=== PATIENT | male | born 1980 | race Caucasian/White ===

== ENCOUNTER 2022-09-02 13:08 | Inpatient (IN) | payer OTHER ==
[~2022-09-02] VITALS: Ht 177.8 cm; Wt 97.5 kg
--- NOTE | 2022-09-02 13:24 | NUR ---
To ER bed 1, "chest pain started around 11 going to arm. Pinching like", aaox3, breathing even and non labored, connected to monitor, awaiting md lawson
--- NOTE | 2022-09-02 14:08 | NUR ---
SALINE LOCK ESTABLISHED, BLOOD DRAWN AND SENT TO LAB
[2022-09-02] MEDS ORDERED: ASPIRIN 325 MG TABLET PO ONE (14:30)
[2022-09-02 14:31] LABS: BASOPHILS % (AUTO) 0.2 % (0.0-2.0); EOSINOPHILS % (AUTO) 1.3 % (0.0-6.0); HEMATOCRIT 47 % (39-51); LYMPHOCYTES # (AUTO) 1.3 K/uL (0.8-4.8); LYMPHOCYTES % (AUTO) 19.7 % (20.0-44.0); MEAN CORPUSCULAR HGB CONC 34 g/dl (31.0-36.0); MEAN CORPUSCULAR VOLUME 91 fL (80-96); MONOCYTES # (AUTO) 0.4 K/uL (0.1-1.30); MONOCYTES % (AUTO) 5.7 % (2.0-12.0); NEUTROPHILS # (AUTO) 4.9 K/uL (1.8-8.9); NEUTROPHILS % (AUTO) 73.1 % (43.0-81.0); PLATELET COUNT (AUTO) 273 K/uL (150-450); RED BLOOD CELL COUNT(AUTO) 5.15 MIL/uL (4.5-6.0); WHITE BLOOD COUNT (AUTO) 6.6 K/uL (4.3-11.0)
[2022-09-02] MEDS ORDERED: ASPIRIN 325 MG TABLET ONE (14:42)
--- NOTE | 2022-09-02 14:47 | NUR ---
COVID SWAB DONE AND SENT TO LAB
[2022-09-02 15:11] LABS: CALCIUM, SERUM 9.3 mg/dL (8.5-10.1); CARBON DIOXIDE 27 mmol/L (21-32); CHLORIDE 103 mmol/L (98-107); GLUCOSE 178 mg/dL (74-106); POTASSIUM 3.7 mmol/L (3.5-5.1); SODIUM SERUM 138 mmol/L (136-145); UREA NITROGEN, BLOOD 16 mg/dL (7-18)
[2022-09-02 15:24] LABS: ALANINE AMINOTRANSFERASE 99 U/L (12-78); ALBUMIN 4.1 g/dL (3.4-5.0); ALKALINE PHOSPHATASE 64 U/L (46-116); ASPARTATE AMINOTRANSFERASE 53 U/L (15-37); BILIRUBIN,DIRECT 0.2 mg/dL (0.0-0.2); BILIRUBIN,TOTAL 1.1 mg/dL (0.2-1.0); TOTAL PROTEIN, SERUM 7.7 g/dL (6.4-8.2)
--- NOTE | 2022-09-02 15:34 | NUR ---
DR YOUSIF AT BEDSIDE TALKING TO THE PATIENT
--- NOTE | 2022-09-02 15:36 | NUR ---
MOVE SHEET SUBMITTED.
[2022-09-02] MEDS ORDERED: Z GUARD REMEDY 4 OZ OINT TP PRN (16:00)
[2022-09-02] MEDS ORDERED: MAG HYDROX/AL HYDROX/SIMETH 30 ML UDC PO PRN (16:00)
[2022-09-02] MEDS ORDERED: ONDANSETRON HCL/PF 4 MG/2 ML VIAL IVP PRN (16:00)
[2022-09-02] MEDS ORDERED: NITROGLYCERIN 0.4 MG/TAB BOTTLE SL PRN (16:00)
[2022-09-02] MEDS ORDERED: MAGNESIUM HYDROXIDE 30 ML UDC PO PRN (16:00)
[2022-09-02] MEDS ORDERED: ACETAMINOPHEN 325 MG TABLET ONE (16:02)
[2022-09-02] MEDS: ACETAMINOPHEN 325 MG TABLET PO PRN (16:02)
--- NOTE | 2022-09-02 16:28 | NUR ---
REPORT GIVEN TO BROWN RINCON FOR CHINEDU
--- NOTE | 2022-09-02 16:39 | NUR ---
TRANSFERRED TO BED 315 IN STABLE CONDITION
[2022-09-02] MEDS: NIFEdipine XL (30MG) 30 MG TAB PO SCH (16:56)
[2022-09-02] MEDS: LORAZEPAM 1 MG TABLET PO PRN (16:56)
[2022-09-02] MEDS: CLONIDINE HCL 0.1 MG TABLET PO PRN (18:48)
[2022-09-02 19:30] VITALS: BP 172/127
--- NOTE | 2022-09-02 19:37 | NUR ---
RN ADMITTING/CLOSING NOTES RECEIVED PATIENT VIA [facility] ACCOMPANIED BY 2 ER STAFF. PATIENT IS ON ROOM AIR, NO S/S OF RESPIRATORY DISTRESS. A/Ox4, ABLE TO MAKE NEEDS KNOWN. PUT ON TELE MONITORING SHOWING SINUS RHYTHM AT THIS TIME NO C/O OF CHEST PAIN AT THIS TIME. PATIENT ORIENTED TO STAFF AND UNIT, FULL BODY ASSESSMENT COMPLETED: CARDIAC WNL, RESPIRATORY WNL, GI/ CONTINENT ABLE TO GO TO THE BATHROOM. SKIN IS INTACT. PATIENT HAD HIGH BP WHEN ARRIVING TO UNIT. PRN ATIVAN ADMINISTERED. BEFORE CHANGE OF SHIFT, BP STILL HIGH AND PRN CLONIDINE ADMINISTERED. WILL ENDORSE TO MONITOR. SAFETY MEASURES MAINTAINED: BED LOCKED AND IN LOWEST POSITION, SIDE RAILS UPx2, CALL LIGHT WITHIN REACH, HOB ELEVATED. WILL ENDORSE TO NEXT SHIFT ANY CHINEDU.
--- NOTE | 2022-09-02 19:46 | NUR ---
RECEIVED PATIENT IN BED, ALERT/ORIENTED X4, ROOM AIR, NO DISTRESS, NO COMPLAIN OF CHEST PAIN AT THIS TIME, BP ELEVATED, WAS GIVEN CLONIDINE BY AM RN. WILL MONITOR BP.
[2022-09-02 19:55] VITALS: BP 156/122
[2022-09-02 20:00] VITALS: BP 156/12
--- NOTE | 2022-09-02 20:14 | NUR ---
NOTIFIED AMADOU MENDEZ REGARDING ELEVATED BP, WILL ORDER HYDRALAZINE.
[2022-09-02] MEDS ORDERED: hydrALAZINE HCL IV 20 MG VIAL IV PRN (20:30)
[2022-09-02] MEDS: MORPHINE SULFATE INJ 2 MG/ML DISP.SYRIN IV PRN (20:47)
[2022-09-02 21:59] VITALS: BP 160/95
[2022-09-03] VITALS (7 sets, daily range): BP systolic 111–136; BP diastolic 75–93
--- NOTE | 2022-09-03 06:04 | NUR ---
ADMITTED FOR CHEST PAIN, ALERT/ORIENTED X4, STABLE ON ROOM AIR, LUNG SOUNDS ARE CLEAR, CHEST PAIN, GIVEN MORPHINE, WITH RELIEF, TROPONIN HS 7.0, CHEST XRAY NEGATIVE, SINUS RHYTHM, ELEVATED BP, DIASTOLIC > 100. RECEIVED CLONIDINE 0.1 MG X1, NO IMPROVEMENT OF BP, NOTIFIED CELLULOSE INSULATION HELPER DEDRICK, GIVEN HYDRALAZINE 10 MG IV, BP IMPROVED. AT 0400 BP 126/83 HR 62. ECHO PENDING RESULTS.
--- NOTE | 2022-09-03 07:05 | NUR ---
CUTTER GRINDER OPENING NOTES RECEIVED PATIENT AWAKE IN BED, A/Ox4 ABLE TO MAKE NEEDS KNOWN. ON ROOM AIR, NO S/S OF RESPIRATORY DISTRESS OR SOB. PATIENT DOES COMPLAIN OF SLIGHT CHEST PAIN, WILL CONTINUE TO MONITOR AND ADMINISTERED MEDICATION NEEDED. ON TELE MONITORING SHOWING SINUS RHYTHM HR [address] DEPRESSIONS. IV ACCESS LAC #22 G SL. INTACT AND PATENT AT THIS TIME. AMBULATORY, CONTINENT, HAS BATHROOM PRIVILEGES. SKIN IS INTACT. SAFETY MEASURES IN PLACE: BED LOCKED AND IN LOWEST POSITION, SIDE RAILS UP x2, HOB ELEVATED, CALL LIGHT WITHIN REACH. WILL CONTINUE TO MONITOR. Addendum: 09/03/22 at 0844 by BROWN ESPINAL RN ADDENDUM: IV SITE L FA #22 G SL
[2022-09-03 07:13] LABS: BASOPHILS % (AUTO) 0.3 % (0.0-2.0); EOSINOPHILS % (AUTO) 2.3 % (0.0-6.0); HEMATOCRIT 45 % (39-51); HEMOGLOBIN 15.3 g/dL (13.5-17.5); LYMPHOCYTES % (AUTO) 35.5 % (20.0-44.0); MEAN CORPUSCULAR HGB CONC 34 g/dl (31.0-36.0); MEAN CORPUSCULAR VOLUME 92 fL (80-96); MONOCYTES # (AUTO) 0.5 K/uL (0.1-1.30); NEUTROPHILS % (AUTO) 52.9 % (43.0-81.0); PLATELET COUNT (AUTO) 241 K/uL (150-450); WHITE BLOOD COUNT (AUTO) 5.8 K/uL (4.3-11.0)
[2022-09-03 07:25] LABS: CALCIUM, SERUM 9.4 mg/dL (8.5-10.1); MAGNESIUM 2.4 mg/dL (1.8-2.4); PHOSPHORUS 3.6 mg/dL (2.5-4.9)
[2022-09-03] MEDS: NIFEdipine XL (30MG) 30 MG TAB PO SCH (08:11)
[2022-09-03] MEDS: MORPHINE SULFATE INJ 2 MG/ML DISP.SYRIN IV PRN ×4 (08:12→21:25)
[2022-09-03] MEDS ORDERED: LOSARTAN POTASSIUM 50 MG TABLET PO SCH (10:00)
[2022-09-03] MEDS: ASPIRIN 81 MG TAB.CHEW PO SCH (10:23)
[2022-09-03] MEDS ORDERED: METOPROLOL TARTRATE 50 MG TABLET PO STA (11:05)
--- NOTE | 2022-09-03 11:40 | NUR ---
RN NOTES PULLED 25 MG INSTEAD OF 50 MG TAB OF LOPRESSOR, PHARMACY NOTIFIED, NEW ORDER OBTAINED. FIRST ORDER NON-ADMIN.
[2022-09-03] MEDS ORDERED: METOPROLOL TARTRATE 50 MG TABLET PO ONE (12:00)
[2022-09-03 12:34] LABS: CHOLESTEROL 228 mg/dL (<200); HDL CHOLESTEROL 66 mg/dL (40-60); LDL 129 mg/dL (0-99); TRIGLYCERIDES 186 mg/dL (30-150)
[2022-09-03] MEDS ORDERED: IV NS 0.9% 250 ML IV ONE (13:04)
[2022-09-03] MEDS ORDERED: IOHEXOL-350 100 ML VIAL IV ONE (13:04)
[2022-09-03] MEDS ORDERED: NITROGLYCERIN 4.9 GM SPRAY ONE (13:17)
[2022-09-03] MEDS: ACETAMINOPHEN 325 MG TABLET PO PRN (15:31)
[2022-09-03] MEDS: NITROGLYCERIN PATCH 0.2 MG/HR PATCH.TD24 TD SCH (17:06)
[2022-09-03] MEDS: ENOXAPARIN SODIUM 100 MG/ML DISP.SYRIN SQ SCH (17:07)
--- NOTE | 2022-09-03 18:40 | NUR ---
MANAGER KNOWLEDGE CLOSING NOTES PATIENT AWAKE IN BED, A/Ox4 ABLE TO MAKE NEEDS KNOWN. STABLE ON ROOM AIR, NO S/S OF RESPIRATORY DISTRESS OR SOB. ON TELE MONITORING SHOWING SINUS RHYTHM HR [address] DEPRESSIONS. IV ACCESS L FA #22 G SL. INTACT AND PATENT AT THIS TIME. AMBULATORY, CONTINENT, HAS BATHROOM PRIVILEGES. SKIN IS INTACT. ALL PRESCRIBED MEDICATION ADMINISTERED. SAFETY MEASURES MAINTAINED: BED LOCKED AND IN LOWEST POSITION, SIDE RAILS UP x2, HOB ELEVATED, CALL LIGHT WITHIN REACH. WILL ENDORSE TO NEXT SHIFT ANY CHINEDU.
--- NOTE | 2022-09-03 19:58 | NUR ---
RECEIVED PATIENT IN BED, ALERT/ORIENTED X4, ROOM AIR, COMPLAINING OF CHEST PAIN, RECEIVED MORPHINE DURING AM SHIFT, NITRO PATCH IN PLACE, WILL GIVE MORPHINE WHEN DUE, KEPT SAFE, WILL CONTINUE TO MONITOR.
[2022-09-03] MEDS: LORAZEPAM 1 MG TABLET PO PRN (20:23)
[2022-09-04] VITALS: BP 123/85
[2022-09-04] MEDS: MORPHINE SULFATE INJ 2 MG/ML DISP.SYRIN IV PRN ×6 (01:26→21:57)
[2022-09-04 04:00] VITALS: BP 123/83
[2022-09-04] MEDS: ENOXAPARIN SODIUM 100 MG/ML DISP.SYRIN SQ SCH ×2 (05:19→16:47)
--- NOTE | 2022-09-04 06:52 | NUR ---
ALERT/ORIENTED X4, ROOM AIR, INTERMITTENT CHEST PAIN, VS STABLE, MORPHINE Q6 HRS, ADEQUATE RELIEF, CTCA DONE, WILL HAVE CARDIAC CATHETERIZATION 09/05/22, PATIENT IS AWARE. MONITOR TROPONIN HS Q6HRS, LAB DRAW FOR 09/03/22 AT 2230 MISSED.
--- NOTE | 2022-09-04 07:30 | NUR ---
DURALUMIN METALWORKER OPENING NOTES RECEIVED PATIENT ON BED AWAKE AND A/O X4. ON ROOM AIR TOLERATING WELL. NO SOB NOTED. NOT IN DISTRESS. WITH COMPLAINTS OF CHEST PAIN AT THE SCALE OF 5/10. COMFORT MEASURES PROVIDED. ON TELE MONITOR CURRENTLY READING SINUS RHYTHM AT 72BPM. WITH IV ACCESS AT THE LEFT FOREARM G22 SALINE LOCKED, PATENT AND INTACT. SAFETY MEASURES IN PLACED. CALL LIGHT WITHIN REACH. BED ON LOWEST LOCKED POSITION, SIDE RAILS UP X2. WILL CONTINUE TO MONITOR.
--- NOTE | 2022-09-04 07:30 | NUR ---
MS RINCON OPENING NOTES RECEIVED PATIENT ON BED AWAKE AND A/O X4. ON ROOM AIR TOLERATING WELL. NO SOB NOTED. NOT IN DISTRESS. WITH COMPLAINTS OF CHEST PAIN AT THE SCALE OF 02/11 Addendum: 09/04/22 at 1308 by LUISA HESS RN ERROR.
[2022-09-04] MEDS: NIFEdipine XL (30MG) 30 MG TAB PO SCH (08:42)
[2022-09-04] MEDS: ATORVASTATIN 40 MG TABLET PO SCH ×2 (08:42→21:57)
[2022-09-04] MEDS: ASPIRIN 81 MG TAB.CHEW PO SCH (08:42)
[2022-09-04] MEDS: METOPROLOL SUCCINATE 25 MG TAB.SR.24H PO SCH (08:42)
[2022-09-04 10:19] VITALS: BP 140/92
[2022-09-04 10:56] LABS: CALCIUM, SERUM 9.3 mg/dL (8.5-10.1)
[2022-09-04 10:59] LABS: BASOPHILS # (AUTO) 0.1 K/uL (0.0-0.2); BASOPHILS % (AUTO) 0.9 % (0.0-2.0); EOSINOPHILS % (AUTO) 2.4 % (0.0-6.0); HEMATOCRIT 44 % (39-51); LYMPHOCYTES # (AUTO) 2.7 K/uL (0.8-4.8); MEAN CORPUSCULAR HGB CONC 34 g/dl (31.0-36.0); MEAN CORPUSCULAR VOLUME 92 fL (80-96); MONOCYTES # (AUTO) 0.5 K/uL (0.1-1.30); MONOCYTES % (AUTO) 7.9 % (2.0-12.0); NEUTROPHILS # (AUTO) 2.7 K/uL (1.8-8.9); NEUTROPHILS % (AUTO) 44.8 % (43.0-81.0); PLATELET COUNT (AUTO) 250 K/uL (150-450); RED BLOOD CELL COUNT(AUTO) 4.81 MIL/uL (4.5-6.0)
[2022-09-04] MEDS: NITROGLYCERIN PATCH 0.2 MG/HR PATCH.TD24 TD SCH (16:47)
--- NOTE | 2022-09-04 18:48 | NUR ---
TRAVELING CONSTRUCTION SUPERINTENDENT CLOSING NOTES PATIENT ON BED AWAKE AND A/O X4. ON ROOM AIR TOLERATING WELL. NO SOB NOTED. NOT IN DISTRESS. WITH COMPLAINTS OF CHEST PAIN AT THE SCALE OF 4/10. COMFORT MEASURES PROVIDED. ON TELE MONITOR CURRENTLY READING SINUS RHYTHM AT 75BPM. WITH IV ACCESS AT THE LEFT FOREARM G22 SALINE LOCKED, PATENT AND INTACT. DUE MEDS GIVEN. SAFETY MEASURES IN PLACED. CALL LIGHT WITHIN REACH. BED ON LOWEST LOCKED POSITION, SIDE RAILS UP X2. WILL ENDORSE TO NEXT SHIFT FOR CHINEDU.
--- NOTE | 2022-09-04 20:10 | NUR ---
LEARNING STRATEGIST OPENING NOTE RECEIVED PATIENT AWAKE, ALERT/ORIENTED X 4, PT ABLE TO MAKE NEEDS KNOWN. PT STABLE ON RA, NO S/S OF DISTRESS OR SOB NOTED, BREATHING EVEN AND UNLABORED. PATIENT C/O OF HEADACHE, TYLENOL 650 MG GIVEN ORDERED. PATIENT ON EXTERNAL INDUSTRIAL MACHINE OPERATOR READING SINUS RHYTHM, HR: 70. NEW IV INSERTED ON RIGHT FOREARM #22G INTACT AND FLUSHING WELL, BLOOD RETURN NOTED. PATIENT GOING TO BETTING AGENCY COUNTER CLERK TOMORROW, TO BE NPO AFTER MIDNIGHT, PT VERBALIZED UNDERSTANDING. SAFETY MEASURES IN PLACE: CALL LIGHT WITHIN REACH, SIDE RAILS UP X 2, BED LOCKED IN LOWEST POSITION, PT AMBULATORY WITH STEADY GAIT. WILL CONTINUE TO MONITOR PATIENT
[2022-09-04] MEDS: ACETAMINOPHEN 325 MG TABLET PO PRN (20:30)
[2022-09-04 20:34] VITALS: BP 135/79
--- NOTE | 2022-09-04 21:54 | NUR ---
ANIMAL PHYSIOLOGY TEACHER NOTE PATIENT C/O 8/10 PAIN, WHEN ASKED WHERE PATIENT SAID "EVERYWHERE". PATIENT REQUESTING PAIN MEDICINE, WILL ADMINISTER MORPHINE 2 MG IV Q4H ORDERED
[2022-09-04] MEDS: LORAZEPAM 1 MG TABLET PO PRN (23:08)
--- NOTE | 2022-09-04 23:08 | NUR ---
FRUIT BUYER NOTE PATIENT RESTLESS, ANXIOUS, UNABLE TO SLEEP. ATIVAN 0.5 MG PO GIVEN ORDERED. WILL CONTINUE TO MONITOR PATIENT
[2022-09-05] VITALS (11 sets, daily range): BP systolic 118–155; BP diastolic 72–107
[2022-09-05] MEDS: MORPHINE SULFATE INJ 2 MG/ML DISP.SYRIN IV PRN ×5 (02:04→22:26)
--- NOTE | 2022-09-05 06:52 | NUR ---
TERRITORY ACCOUNT REPRESENTATIVE CLOSING NOTE PATIENT AWAKE, ALERT/ORIENTED X 4, PT ABLE TO MAKE NEEDS KNOWN. PT STABLE ON RA, NO S/S OF DISTRESS OR SOB NOTED, BREATHING EVEN AND UNLABORED. PATIENT ON EXTERNAL PYROTECHNICIAN READING SINUS RHYTHM, HR: 62. IV ACCESS ON RIGHT FOREARM #22G INTACT AND FLUSHING WELL. PATIENT KEPT NPO AFTER MIDNIGHT. MEDICATIONS GIVEN ORDERED, PT NEEDS MET THROUGHOUT SHIFT. SAFETY MEASURES IN PLACE: CALL LIGHT WITHIN REACH, SIDE RAILS UP X 2, BED LOCKED IN LOWEST POSITION, PT AMBULATORY WITH STEADY GAIT. WILL ENDORSE TO DAYSHIFT NURSE FOR CONTINUITY OF CARE
--- NOTE | 2022-09-05 07:30 | NUR ---
URBAN DESIGNER OPENING NOTES RECEIVED PATIENT ON BED AWAKE AND A/O X4. ON ROOM AIR TOLERATING WELL. NO SOB NOTED. NOT IN DISTRESS. WITH COMPLAINTS OF CHEST PAIN AT THE SCALE OF 8/10. MORPHINE 2MG IV GIVEN PRN FOR PAIN. COMFORT MEASURES PROVIDED. ON TELE MONITOR CURRENTLY READING SINUS RHYTHM AT 70BPM. WITH IV ACCESS AT THE RIGHT FOREARM G22 SALINE LOCKED, PATENT AND INTACT. SAFETY MEASURES IN PLACED. CALL LIGHT WITHIN REACH. BED ON LOWEST LOCKED POSITION, SIDE RAILS UP X2. WILL CONTINUE TO MONITOR.
[2022-09-05] MEDS: METOPROLOL SUCCINATE 25 MG TAB.SR.24H PO SCH (08:30)
[2022-09-05] MEDS: ASPIRIN 81 MG TAB.CHEW PO SCH (08:37)
[2022-09-05] MEDS: NIFEdipine XL (30MG) 30 MG TAB PO SCH (08:37)
[2022-09-05 08:48] LABS: BASOPHILS % (AUTO) 0.4 % (0.0-2.0); EOSINOPHILS % (AUTO) 2.1 % (0.0-6.0); HEMATOCRIT 43 % (39-51); HEMOGLOBIN 14.6 g/dL (13.5-17.5); LYMPHOCYTES # (AUTO) 1.8 K/uL (0.8-4.8); LYMPHOCYTES % (AUTO) 29.5 % (20.0-44.0); MEAN CORPUSCULAR HGB CONC 34 g/dl (31.0-36.0); MEAN CORPUSCULAR VOLUME 92 fL (80-96); MONOCYTES # (AUTO) 0.6 K/uL (0.1-1.30); MONOCYTES % (AUTO) 9.6 % (2.0-12.0); NEUTROPHILS # (AUTO) 3.6 K/uL (1.8-8.9); NEUTROPHILS % (AUTO) 58.4 % (43.0-81.0); PLATELET COUNT (AUTO) 226 K/uL (150-450); RED BLOOD CELL COUNT(AUTO) 4.68 MIL/uL (4.5-6.0); WHITE BLOOD COUNT (AUTO) 6.1 K/uL (4.3-11.0)
[2022-09-05 08:58] LABS: CALCIUM, SERUM 9.1 mg/dL (8.5-10.1); CREATININE 0.9 mg/dL (0.6-1.3); POTASSIUM 4.1 mmol/L (3.5-5.1)
[2022-09-05] MEDS ORDERED: IV NS 0.9% 1,000 ML ONE (11:49)
[2022-09-05] MEDS ORDERED: IV SET PRIMARY PUMP SET 1 EA INFUS.SET MC ONE (11:49)
[2022-09-05] MEDS ORDERED: IODIXANOL 150 ML IV ONE (11:50)
[2022-09-05] MEDS ORDERED: LIDOCAINE HCL/MPF 1% 30 ML VIAL IJ ONE (11:51)
[2022-09-05] MEDS ORDERED: NITROGLYCERIN IN 5 % DEXTROSE 250 ML IV ONE (11:51)
[2022-09-05] MEDS ORDERED: MIDAZOLAM HCL 2 MG/2ML VIAL ONE (12:06)
[2022-09-05] MEDS ORDERED: FENTANYL PF 100MCG/2ML AMPUL ONE (12:06)
--- NOTE | 2022-09-05 13:15 | NUR ---
RN NOTES PATIENT CAME BACK [facility] WITH [facility] PERSONNELS AND WAS ENDORSED BY SERGEY DURAN. PATIENT IS AWAKE AND A/O X4. ON ROOM AIR TOLERATING WELL. NO SOB NOTED. NOT IN DISTRESS. WITH TR BAND ON THE RIGHT HAND. NO BLEEDING NOTED. CHECKED O2 SAT AT RIGHT FINGER WITH A READING OF 97%. V/S CHECKED: BP-145/85, MI-62, TEMP-98.2, RR-19 AND O2 SAT AT 97%. WILL MONITOR.
--- NOTE | 2022-09-05 15:00 | NUR ---
RN NOTE CHECKED TR BAND AND NO BLEEDING NOTED. REMOVED 3CC OF AIR. WILL MONITOR.
--- NOTE | 2022-09-05 15:17 | NUR ---
RN NOTE RECHECKED TR BAND SITE AND NO BLEEDING NOTED. REMOVED 3CC OF AIR. WILL MONITOR.
--- NOTE | 2022-09-05 15:37 | NUR ---
RN NOTE NO BLEEDING NOTED. REMOVED ANOTHER 3CC OF AIR. WILL MONITOR.
--- NOTE | 2022-09-05 15:47 | NUR ---
RN NOTE RECHECKED TR BAND BAND AND NO BLEEDING NOTED. REMOVED 3CC OF AIR. WILL MONITOR.
[2022-09-05] MEDS: NITROGLYCERIN PATCH 0.2 MG/HR PATCH.TD24 TD SCH (17:07)
--- NOTE | 2022-09-05 18:50 | NUR ---
RN CLOSING NOTE PATIENT AWAKE, ALERT/ORIENTED X 4 COMFORTABLY SITTING ON CHAIR AT THIS TIME. PT ABLE TO MAKE NEEDS KNOWN. PT STABLE ON RA, NO S/S OF DISTRESS OR SOB NOTED, BREATHING EVEN AND UNLABORED. PATIENT ON EXTERNAL TRAILER ASSEMBLER READING. PRN PAIN MEDS ADMINISTERED WITH GOOD EFFECT. DUE MEDICATIONS GIVEN. PT NEEDS MET THROUGHOUT SHIFT. SAFETY MEASURES IN PLACE: CALL LIGHT WITHIN REACH, SIDE RAILS UP X 2, BED LOCKED IN LOWEST POSITION, PT AMBULATORY WITH STEADY GAIT. WILL ENDORSE TO INCOMING NURSE.
--- NOTE | 2022-09-05 20:00 | NUR ---
MULTI SITE LEASING CONSULTANT OPENING NOTE RECEIVED PATIENT AWAKE IN ROOM WITH FRIEND AT BEDSIDE, ALERT/ORIENTED X 4, PT ABLE TO MAKE NEEDS KNOWN. PT STABLE ON RA, NO S/S OF DISTRESS OR SOB NOTED, BREATHING EVEN AND UNLABORED. PATIENT ON EXTERNAL SHAPER SETTER READING SINUS RHYTHM, HR: 86. SAFETY MEASURES IN PLACE: CALL LIGHT WITHIN REACH, SIDE RAILS UP X 2, BED LOCKED IN LOWEST POSITION, PT AMBULATORY WITH STEADY GAIT. WILL CONTINUE TO MONITOR PATIENT
[2022-09-05] MEDS: CLONIDINE HCL 0.1 MG TABLET PO PRN (20:14)
--- NOTE | 2022-09-05 20:15 | NUR ---
SENIOR MANAGEMENT CONSULTANT NOTE PATIENT NOTED WITH BP 155/107, HR: 81. CLONIDINE 0.1 MG PO GIVEN ORDERED. WILL CONTINUE TO MONITOR
--- NOTE | 2022-09-05 22:21 | NUR ---
BRATTICE BUILDER NOTE PATIENT C/O OF 8/10 PAIN "EVERYWHERE". WILL GIVE MORPHINE 2 MG IV Q4 ORDERED. WILL CONTINUE TO MONITOR
[2022-09-06] VITALS: BP 136/87
[2022-09-06] MEDS: LORAZEPAM 1 MG TABLET PO PRN (00:15)
--- NOTE | 2022-09-06 00:24 | NUR ---
DIAMOND GRADER NOTE PATIENT FEELING ANXIOUS AND STRESSED, UNABLE TO SLEEP. ATIVAN 0.5 MG PO GIVEN ORDERED. WILL CONTINUE TO MONITOR
[2022-09-06] MEDS: MORPHINE SULFATE INJ 2 MG/ML DISP.SYRIN IV PRN ×2 (02:30→08:42)
--- NOTE | 2022-09-06 02:35 | NUR ---
SOCIAL DIRECTOR NOTE PATIENT C/O OF 8/10 PAIN "EVERYWHERE". MORPHINE 2 MG IV Q4 GIVEN ORDERED. WILL CONTINUE TO MONITOR
[2022-09-06 04:00] VITALS: BP 129/100
--- NOTE | 2022-09-06 06:29 | NUR ---
TALENT ACQUISITION PARTNER CLOSING NOTE PATIENT SLEEPING IN BED, ALERT/ORIENTED X 4, PT ABLE TO MAKE NEEDS KNOWN. PT STABLE ON RA, NO S/S OF DISTRESS OR SOB NOTED, BREATHING EVEN AND UNLABORED. PATIENT ON EXTERNAL PLANT SUPERINTENDENT READING SINUS RHYTHM, HR: 60. MEDICATIONS GIVEN ORDERED, PT NEEDS MET THROUGHOUT SHIFT. SAFETY MEASURES IN PLACE: CALL LIGHT WITHIN REACH, SIDE RAILS UP X 2, BED LOCKED IN LOWEST POSITION, PT AMBULATORY WITH STEADY GAIT. WILL ENDORSE TO DAYSHIFT NURSE FOR CONTINUITY OF CARE
[2022-09-06 07:00] VITALS: BP 135/102
--- NOTE | 2022-09-06 08:22 | NUR ---
CSW OPENING NOTE Patient in bed, awake. A/O x 4, able to make needs known. On room air, breathing evenly and unlabored. No SOB or s/s of distress noted. IV access on Left wrist #18 SL, intact and patent. On tele monitoring showing SR, HR 69. Safety precautions in place: bed in low, locked position; siderails up x2; call light within reach. Will continue to monitor.
[2022-09-06 08:38] VITALS: BP 135/102
[2022-09-06] MEDS ORDERED: NIFEdipine XL (30MG) 30 MG TAB PO SCH (09:00)
[2022-09-06 09:52] LABS: BASOPHILS % (AUTO) 0.3 % (0.0-2.0); EOSINOPHILS % (AUTO) 1.7 % (0.0-6.0); HEMATOCRIT 42 % (39-51); HEMOGLOBIN 14.1 g/dL (13.5-17.5); LYMPHOCYTES # (AUTO) 1.1 K/uL (0.8-4.8); LYMPHOCYTES % (AUTO) 22.2 % (20.0-44.0); MEAN CORPUSCULAR HGB CONC 34 g/dl (31.0-36.0); MEAN CORPUSCULAR VOLUME 93 fL (80-96); MONOCYTES # (AUTO) 0.3 K/uL (0.1-1.30); MONOCYTES % (AUTO) 6.5 % (2.0-12.0); NEUTROPHILS # (AUTO) 3.5 K/uL (1.8-8.9); NEUTROPHILS % (AUTO) 69.3 % (43.0-81.0); PLATELET COUNT (AUTO) 214 K/uL (150-450); RED BLOOD CELL COUNT(AUTO) 4.56 MIL/uL (4.5-6.0); WHITE BLOOD COUNT (AUTO) 5.1 K/uL (4.3-11.0)
[2022-09-06 10:11] LABS: CALCIUM, SERUM 9.1 mg/dL (8.5-10.1); POTASSIUM 3.8 mmol/L (3.5-5.1)
--- NOTE | 2022-09-06 15:30 | NUR ---
DISCHARGE NOTE Received order for discharge. Patient is A/O x 4, able to make needs known. Stable on room air, no SOB or s/s of distress noted. Discharge instructions given both verbally and in written form, verbalized understanding. Patient denies any pain or discomfort at this time. All belongings accounted for, belonging sheet signed. IV access removed, catheter tip intact. Pressure dressing applied. Patient left in stable condition with family via private car.
== END 2022-09-06 12:30 | disposition home or self-care (01) | DRG 191 ==
LOC: ER 13:13 → TELE 16:16
PROVIDERS: ADMIT Internal Medicine; ATTEND Internal Medicine
PROC: 4A023N7 Measurement of Cardiac Sampling and Pressure, Left Heart, Percutaneous Approach (ICD-10-PCS; principal; 2022-09-05)
PROC: B211YZZ Fluoroscopy of Multiple Coronary Arteries using Other Contrast (ICD-10-PCS; 2022-09-05)
DX: I25.110 Atherosclerotic heart disease of native coronary artery with unstable angina pectoris (principal); E66.9 Obesity, unspecified; F41.9 Anxiety disorder, unspecified; I10 Essential (primary) hypertension; Z79.899 Other long term (current) drug therapy; Z79.82 Long term (current) use of aspirin; R74.01 Elevation of levels of liver transaminase levels; Z68.30 Body mass index [BMI] 30.0-30.9, adult
CPT/HCPCS: 36415; 71045-TC; 75574; 76700-TC; 80048-TC; 80061-TC; 80076-TC; 83735-TC; 83880; 84100-TC; 84484-TC; 85025-TC; 85378-TC; 85610-TC; 85730-TC; 87081-TC; 93307-TC; 94799-TC; C9803; G0378; G0500; J0360; J1644; J1650; J2250; J2270; J3010; J3490; J7030; J7050; Q9967